=== PATIENT | female | born 1950 | race Caucasian/White ===

== ENCOUNTER 2018-09-04 17:26 | Emergency (ER) | payer MEDICARE, MEDICAID, SELFPAY ==
[2018-09-04 17:30] VITALS: BP 188/84; PULSE 79; RESP 18; TEMP 36.4; O2SAT 96; BMI 23.4
--- NOTE | 2018-09-04 17:43 | DI.RAD.S_ITS ---
PROCEDURE: XR WRIST LT MIN 3V INDICATIONS: Fall, extreme pain in the left arm. TECHNIQUE: 3 views of the wrist were acquired. COMPARISON: None. FINDINGS: There is an acute comminuted fracture of the distal radial metaphysis with intra-articular extension and moderate dorsal angulation of the distal fracture fragments. There is impaction of the fracture fragments. There is a mildly displaced ulnar styloid fracture. There is overlying soft tissue swelling surrounding the right wrist. There are moderate degenerative changes of the right first carpometacarpal joint. IMPRESSION: Acute comminuted fracture of the distal right radial metaphysis with intra-articular extension and dorsal angulation of the distal fracture fragments. Acute mildly displaced right ulnar styloid fracture. Dictated by: Pato Jackson M.D. on 09/04/2018 at 19:09 Approved by: Pato Jackson M.D. on 09/04/2018 at 19:12
--- NOTE | 2018-09-04 17:43 | DI.RAD.S_ITS ---
PROCEDURE: XR ELBOW LT MIN 3V INDICATIONS: Fall, extreme pain in left arm. TECHNIQUE: 3 views of the elbow were acquired. COMPARISON: None. FINDINGS: Bones: No fractures or dislocations. No suspicious bony lesions. Soft tissues: No elbow joint effusion. No suspicious soft tissue calcifications. IMPRESSION: No acute fracture or dislocation of the left elbow. Dictated by: Pato Jackson M.D. on 09/04/2018 at 19:12 Approved by: Pato Jackson M.D. on 09/04/2018 at 19:13
[2018-09-04] MEDS: IBUPROFEN 400 MG TABLET PO (18:46)
--- NOTE | 2018-09-04 21:17 | DI.RAD.S_ITS ---
PROCEDURE: XR WRIST LT 2V INDICATIONS: post reduction TECHNIQUE: 2 views of the wrist were acquired. COMPARISON: [facility], CR, XR WRIST LT MIN 3V, 09/04/2018, 17:49. FINDINGS: Bones: Interval reduction of the previously noted acute comminuted intra-articular distal left radial fracture, resulting in decreased dorsal angulation of the distal fracture fragments. Previously noted ulnar styloid fracture is similar in appearance to prior exam. There is again moderate degenerative change of the first carpometacarpal joint. Overlying splint material obscures underlying fine anatomic detail. Soft tissues: There is soft tissue swelling surrounding the left wrist. IMPRESSION: Interval reduction of the previously noted distal left radial comminuted intra-articular fracture, resulting in decreased angulation of the fracture fragments. Similar-appearing distal left ulnar styloid fracture. Dictated by: Pato Jackson M.D. on 09/04/2018 at 22:54 Approved by: Pato Jackson M.D. on 09/04/2018 at 22:56
--- NOTE | 2018-09-04 21:21 | ED_ITS ---
HPI - Extremity Injury (Upper) General Chief Complaint: Extremity Injury, Upper Stated Complaint: fell on ice, injured left lower arm Time Seen by Provider: 09/04/18 20:13 Source: patient Mode of arrival: ambulatory Limitations: no limitations History of Present Illness HPI narrative: Patient is a 68-year-old female who presents with left wrist pain. She was walking her dog when she slipped and fell on the ice. Landing mostly on her left side. She has obvious deformity of her left wrist and decreased movement of her thumb index finger and ring finger. She also has pain in her elbow when she tries to supinate or pronate. No shoulder pain no hip pain. She does have some his knee discomfort but she has been ambulatory without problems. She denies hitting her head or any initial neck pain. She says as the day has gone on she is noticing some right cervical pain as well. Related Data Previous Rx's Medication Instructions Recorded tramadol 50 mg PO Q4-6H PRN #10 tab 09/04/18 Allergies Allergy/AdvReac Type Severity Reaction Status Date / Time No Known Drug Allergies Allergy Verified 09/04/18 17:38 Review of Systems Review of Systems ROS Unobtainable: All systems reviewed & are unremarkable except as noted in HPI and below Constitutional Denies chills, Denies fever(s), Denies lethargy and Denies weakness Eyes Denies change in vision, Denies eye discharge, Denies irritation and Denies loss of vision Cardiovascular Denies chest pain, Denies irregular heart rhythm, Denies lightheadedness, Denies palpitations and Denies orthopnea Musculoskeletal Reports as per HPI Integumentary/Breasts Denies pruritus, Denies erythema, Denies rash and Denies wounds Neurologic Denies loss of vision and Denies weakness Endocrine Denies palpitations [facility] Medical History Patient denies significant medical history (Acute) Social History Smoking Status: Unknown if ever smoked Social History Smoking Status: Unknown if ever smoked Exam Initial Vital Signs Initial Vital Signs: Vital Signs Temperature 97.5 F L 09/04/18 17:30 Pulse Rate 79 09/04/18 17:30 Respiratory Rate 18 09/04/18 17:30 Blood Pressure 188/84 H 09/04/18 17:30 Pulse Oximetry 96 09/04/18 17:30 GENERAL: alert very pleasant of female is appears in mild pain HEENT: Head atraumatic,EOMI, pupils reactive, Neck is supple no vertebral tenderness full range of motion CARDIOVASCULAR: Regular rate and rhythm without murmurs, rubs or gallops. RESPIRATORY: Breath sounds equal bilaterally, no wheezes rales or rhonchi. ABDOMEN: Soft, nontender. Normoactive bowel sounds all 4 quadrants. No guarding or rebound. EXTREMITIES: Normal range of motion, no clubbing or edema. Neurovascularly intact - left upper extremity obvious distal deformity. It unable to move the thumb index and his middle finger. She says sensation is tingling in those fingers as well. She has some slight elbow pain with movement of her wrist. No shoulder pain or deformity no clavicle step-off. NEUROLOGICAL: Alert and oriented x4.Normal gait and speech. Cranial nerves II through XII grossly intact. SKIN: Warm, dry, no laceration, no petechiae, no rashes or lesions. Procedures Orthopedic Fracture Reduction Fracture #1: Time Out Performed: Yes Side: left Fracture Reduction Location: radius Analgesia: hematoma block Technique: direct manipulation and traction/counter-traction Post Reduction X-rays Demonstrate: acceptable reduction Post-reduction neuro exam: intact and other ( improved) Post-reduction vascular exam: intact Splint Applied: Yes Patient Tolerated Procedure: Well Orthopedic Splinting/Casting Injury #1: Side: left Upper Extremity Injury Location: wrist Upper Extremity Immobilizer: sugar tong splint Post splinting neuro exam: intact and other ( Improved) Post splinting vascular exam: intact Placed by: Provider Course Orders Ordered: ED Orders 09/04/18 21:17 XR wrist LT 2V Stat Discontinued Medications Acetaminophen (Tylenol) 975 mg PO NOW ONE Stop: 09/04/18 21:48 Last Admin: 09/04/18 22:28 Dose: 975 mg Ibuprofen (Advil) 400 mg PO NOW ONE Stop: 09/04/18 18:45 Last Admin: 09/04/18 18:46 Dose: 400 mg Tramadol HCl (Ultram 50mg Prepack) 1 bottle MISC SEEINSTR ONE Stop: 09/04/18 21:48 Last Admin: 09/04/18 22:28 Dose: 1 bottle Vital Signs - 8 hr 09/04/18 21:50 09/04/18 22:41 Pulse Rate 57 L 70 Respiratory Rate 12 17 Blood Pressure [Right Arm] 144/68 H 143/82 H Pulse Oximetry 97 97 MDM - Extremity Injury (Upper) Imaging Data left wrist x-ray 1.: Radiologist's impression: PROCEDURE: XR WRIST LT MIN 3V INDICATIONS: Fall, extreme pain in the left arm. TECHNIQUE: 3 views of the wrist were acquired. COMPARISON: None. FINDINGS: There is an acute comminuted fracture of the distal radial metaphysis with intra-articular extension and moderate dorsal angulation of the distal fracture fragments. There is impaction of the fracture fragments. There is a mildly displaced ulnar styloid fracture. There is overlying soft tissue swelling surrounding the right wrist. There are moderate degenerative changes of the right first carpometacarpal joint. IMPRESSION: Acute comminuted fracture of the distal right radial metaphysis with intra- articular extension and dorsal angulation of the distal fracture fragments. Acute mildly displaced right ulnar styloid fracture. Dictated by: Pato Jackson M.D. on 09/04/2018 at 19:09 left wrist x-ray 2.: Radiologist's impression: PROCEDURE: XR WRIST LT 2V INDICATIONS: post reduction TECHNIQUE: 2 views of the wrist were acquired. COMPARISON: [facility], , XR WRIST LT MIN 3V, 09/04/2018, 17:49. FINDINGS: Bones: Interval reduction of the previously noted acute comminuted intra- articular distal left radial fracture, resulting in decreased dorsal angulation of the distal fracture fragments. Previously noted ulnar styloid fracture is similar in appearance to prior exam. There is again moderate degenerative change of the first carpometacarpal joint. Overlying splint material obscures underlying fine anatomic detail. Soft tissues: There is soft tissue swelling surrounding the left wrist. IMPRESSION: Interval reduction of the previously noted distal left radial comminuted intra- articular fracture, resulting in decreased angulation of the fracture fragments. Similar-appearing distal left ulnar styloid fracture. Dictated by: Pato Jackson M.D. on 09/04/2018 at 22:54 left elbow x-ray: Radiologist's impression: PROCEDURE: XR ELBOW LT MIN 3V INDICATIONS: Fall, extreme pain in left arm. TECHNIQUE: 3 views of the elbow were acquired. COMPARISON: None. FINDINGS: Bones: No fractures or dislocations. No suspicious bony lesions. Soft tissues: No elbow joint effusion. No suspicious soft tissue calcifications. IMPRESSION: No acute fracture or dislocation of the left elbow. Dictated by: Pato Jackson M.D. on 09/04/2018 at 19:12 MDM Narrative Medical decision making narrative: after reduction patient able to move her fingers in her median nerve distribution. She said overall feels much better. X-ray confirmed successful reduction. I did talk with Dr. [place] on-call orthopedics is updated her on patient's symptoms and results. Agrees with outpatient follow-up. Discharge Plan Departure Patient Disposition: Home Clinical Impression: Distal radial fracture Qualifiers: Encounter type: initial encounter Fracture type: closed Fracture morphology: unspecified fracture morphology Laterality: left Qualified Code(s): S52.502A - Unspecified fracture of the lower end of left radius, initial encounter for closed fracture Discharge Date/Time: 09/04/18 22:50 Interventions: ED Discharge Assessment Last Done: 09/04/18 22:50 Instructions: DI for Distal Radius Fracture Activity Restrictions/Additional Instructions: *You have been diagnosed with left wrist sprain *What to do: keep splint on at all times you will likely need surgery. *Continue to take medications as directed Tylenol 650 mg every 4-6 hours if needed for pain tramadol 1 tablet every 6 hr if needed for severe pain, recommend breaking in half at 1st to see how you do react. *Follow up with your primary care provider in 2-3 days *Return to ER if you should have Numbness, tingling, increasing pain or any new, worsening or concerning symptoms CONTROLLED SUBSTANCE DISCHARGE (Narcotoic/benzodiazepine/Flexeril/Phenergan) 1. You have been prescribed narcotic medications, 2. Please understand that we cannot provide further refills of narcotics, benzodiazepines or controlled substances through the ED and her pain management will need to be through your provider. 3. While on these medications you cannot drive or operate heavy machinery. 4. You cannot sign legal documents or perform any duties such as this. 5. As long as you're taking opiate pain medications he should also be taking a stool softener such as Colace, Dulcolax, MiraLAX or prune juice, to help avoid constipation. Prescriptions: New tramadol 50 mg tablet 50 mg PO Q4-6H PRN (Reason: pain) Qty: 10 RF: 0 Referrals: [facility] [Provider Group] Maximo Rudolph MD [Primary Care Provider] -
[2018-09-04 21:50] VITALS: BP 144/68; PULSE 57; RESP 12; O2SAT 97
[2018-09-04] MEDS: ACETAMINOPHEN 325 MG TABLET 975 MG PO (22:28)
[2018-09-04] MEDS: TRAMADOL 50 MG PREPACK 1 BOTTLE MISC (22:28)
[2018-09-04 22:41] VITALS: BP 143/82; PULSE 70; RESP 17; O2SAT 97
== END 2018-09-04 22:50 | disposition home or self-care (01) ==
PROVIDERS: Emergency Provider Emergency Medicine; PCP Family Medicine
DX: S52.502A Unspecified fracture of the lower end of left radius, initial encounter for closed fracture (principal); W01.0XXA Fall on same level from slipping, tripping and stumbling without subsequent striking against object, initial encounter
CPT/HCPCS: 25565; 29125; 73080; 73100; 73110; 99283

== ENCOUNTER → 2020-05-10 12:36 | Outpatient (CLI) | payer MEDICARE, MEDICAID, SELFPAY ==
--- NOTE | 2020-05-10 12:44 | DI.CT.S_ITS ---
PROCEDURE: CT ABDOMEN PELVIS WO/W CON INDICATIONS: Other abnormal findings in urine TECHNIQUE: Optional 5 mm thick noncontrast images acquired from the diaphragm to the symphysis pubis. After the administration of intravenous contrast, 5 mm thick images acquired from the diaphragm to the symphysis pubis after a 10-minute delay. 2 mm thick coronal and sagittal reformats were then performed of the kidneys and ureters. For radiation dose reduction, the following was used: automated exposure control, adjustment of mA and/or kV according to patient size. COMPARISON: None. FINDINGS: Image quality: Excellent. Lung bases: Lung bases are clear. Heart size is normal. Urinary system: Both kidneys are normal in size, without hydronephrosis or nephrolithiasis on pre-contrast images. No perinephric fat stranding. There is normal bilateral renal enhancement. Renal calyces appear normal in morphology when filled with contrast. Opacified portions of both ureters demonstrate normal caliber. Bladder wall thickness is normal. No calcified bladder stones. Other solid organs: Liver is normal in size and enhancement. Gallbladder is unremarkable. Biliary system is non dilated. Pancreas enhances normally. Spleen is normal in size and enhancement. No adrenal nodules. Peritoneum and bowel: Bowel loops demonstrate normal wall thickness and caliber. No free fluid or air. Sigmoid diverticulosis without evidence of diverticulitis. Nodes and vessels: No retroperitoneal or mesenteric adenopathy by size criteria. Aorta and inferior vena cava are normal in size. Aortic atherosclerosis. Abdominal wall: No ventral hernias. Pelvis: No pathologic free pelvic fluid. No inguinal hernias or adenopathy. Bones: No suspicious bony lesions. No vertebral body compression fractures. Lumbar degenerative change. IMPRESSION: 1. No evidence of renal stones, ureteral stones, hydronephrosis, or malignancy. 2. Sigmoid diverticulosis without evidence of diverticulitis. 3. Atherosclerosis. Dictated by: Justin Magaña M.D. on 05/10/2020 at 14:42 Approved by: Justin Magaña M.D. on 05/10/2020 at 14:44
== END ==
PROVIDERS: PCP Family Medicine; Referring Provider Family Medicine; Visit Provider Family Medicine
DX: R82.998 Other abnormal findings in urine (principal); K57.30 Diverticulosis of large intestine without perforation or abscess without bleeding; I70.0 Atherosclerosis of aorta
CPT/HCPCS: 74178; Q9967

== ENCOUNTER → 2020-08-25 10:54 | Outpatient (CLI) | payer MEDICARE, MEDICAID, SELFPAY ==
--- NOTE | 2020-08-25 | DI.MG.S_ITS ---
BILATERAL DIGITAL SCREENING MAMMOGRAM 3D/2D WITH CAD: 08/25/2020 CLINICAL: Baseline by default. Routine screening. No prior exams were available for comparison. The tissue of both breasts is heterogeneously dense. This may lower the sensitivity of mammography. Current study was also evaluated with a Computer Aided Detection (CAD) system. There are benign calcifications in both breasts. No significant masses, calcifications, or other findings are seen in either breast. IMPRESSION: BENIGN There is no mammographic evidence of malignancy. A 1 year screening mammogram is recommended. This exam was interpreted at Station ID: [id number]. NOTE: For mammograms, a report in lay terms will be sent to the patient. Approximately 15% of breast malignancies will not be visualized mammographically. In the management of a palpable breast mass, a negative mammogram must not discourage biopsy of a clinically suspicious lesion. Electronically Signed By: Juve soriano/chavo:08/25/2020 11:52:02 letter sent: Normal Exam ACR BI-RADS Category 2: Benign Finding(s) 3342F
== END ==
PROVIDERS: PCP Family Medicine; Referring Provider Family Medicine; Visit Provider Family Medicine
DX: Z12.31 Encounter for screening mammogram for malignant neoplasm of breast (principal)
CPT/HCPCS: 77063; 77067